=== PATIENT | female | born 1980 | race African-American/Black ===

== ENCOUNTER 2016-08-16 18:33 | Emergency (ER) | payer OTHER ==
[~2016-08-16] VITALS: Ht 165.1 cm; Wt 115.1 kg
[~2016-08-16 18:33] MED LIST: ANTIVERT25 MG PO; ASPIR-LOW81 MG PO; AVIANE1 EACH PO; BACTRIM,SEPT1 TABLET PO; COLACE100 MG PO; ENDOCET 5-3251 EACH PO; FERROUS SULFAT325 MG PO; FIORICET 50-301 EACH PO; FLEXERIL10 MG PO; FOLBIC RF TABL1 EACH PO; IBUPROFEN800 MG PO; KEFLEX500 MG PO; LIPITOR40 MG PO; MACROBID100 MG PO; MACRODANTIN100 MG PO; MICRONOR0.35 MG PO; MOTRIN600 MG PO; NAPROSYN500 MG PO; NORCO 7.5/321 TABLET PO; PENICILLIN; PERCOCET 5/31 TABLET PO; PHENTERMINE HCL30 MG PO; PRENATAL TABLE1 EAC3 PO; PYRIDIUM200 MG PO; ULTRAM50 MG PO; VICODIN,LORT1 TABLET PO; ZOFRAN4 MG PO
[2016-08-16] MEDS ORDERED: INDOCIN50 MG PO (20:29)
[2016-08-16 20:34] VITALS: BP 116/77
== END 2016-08-16 20:45 | disposition home or self-care (01) ==
LOC: EME 18:33
DX: M25.461 Effusion, right knee (principal); M25.561 Pain in right knee
CPT/HCPCS: 99281; 99283